=== PATIENT | female | born 2000 | race Caucasian/White ===

== ENCOUNTER 2024-07-10 11:31 | Emergency (ER) | payer SELFPAY ==
[~2024-07-10] VITALS: Ht 165.1 cm; Wt 65.7 kg
[2024-07-10] VITALS (10 sets, daily range): BP systolic 108–116; BP diastolic 62–74
[2024-07-10] MEDS ORDERED: SODIUM CHLORIDE 0.9% 1,000 ML IV ONE (11:45)
[2024-07-10] MEDS ORDERED: ONDANSETRON HCl 4 MG/2 ML SDV IV ONE (11:45)
[2024-07-10 12:11] LABS: URINE BILIRUBIN - DIPSTICK Negative (NEGATIVE); URINE BLOOD DIPSTICK Negative (NEGATIVE); URINE GLUCOSE - DIPSTICK Negative (NEGATIVE); URINE KETONE >=160 mg/dL (NEGATIVE); URINE LEUK ESTERASE Negative (NEGATIVE); URINE NITRITE - DIPSTICK Negative (Negative); URINE PROTEIN - DIPSTICK Trace mg/dL (NEG-TRACE); URINE SPECIFIC GRAVITY 1.025
[2024-07-10 12:13] LABS: URINE COLOR Yellow
[2024-07-10 12:13] LABS: BASO% 0.2 % (0-3); EOS% 0.1 % (0-8); HEMATOCRIT 38.5 % (37.0-47.0); HEMOGLOBIN 12.9 g/dl (12.0-16.0); IMMATURE GRANULOCYTES 0.2 % (0.0-5.0); LYMPH% 8.3 % (15-41); MEAN CELL VOLUME 94.1 fL CALC (80.0-100.0); MEAN CORPUSCULAR HGB 31.5 pG CALC (26.0-32.0); MEAN CORPUSCULAR HGB CONC 33.5 g/dL CAL (32.0-36.0); MONO% 3.8 % (2-13); NEUT# 7.77 thou/uL (2.00-7.15); NEUT% 87.4 % (42-76); RED BLOOD COUNT 4.09 mill/uL (4.20-5.60); RED CELL DISTRI WIDTH 12.4 % (11.5-15.5)
[2024-07-10] MEDS ORDERED: FAMOTIDINE 10MG/ML 2ML SDV IV ONE (12:25)
[2024-07-10 12:31] LABS: ALBUMIN 4.8 g/dL (3.2-5.0); BILIRUBIN, TOTAL 0.8 mg/dL (0.02-1.3); CREATININE 0.6 mg/dL (0.5-1.0); POTASSIUM 3.6 mmol/l (3.5-5.1); TOTAL PROTEIN 7.6 g/dL (6.3-8.2)
[2024-07-10] MEDS ORDERED: ZOFRAN4 MG/TAB PO (12:57)
== END 2024-07-10 13:46 | disposition home or self-care (01) | DRG 833 ==
LOC: ED 11:31
PROVIDERS: Family Medicine
DX: O21.0 Mild hyperemesis gravidarum (principal); Z3A.00 Weeks of gestation of pregnancy not specified